=== PATIENT | female | born 1990 | race Caucasian/White ===

== ENCOUNTER 2019-01-03 20:15 | Emergency (ER) | payer OTHER ==
[2019-01-03] MEDS ORDERED: Sodium Chloride 0.9% 1000 ML 1,000 ML IV STA (21:06)
--- NOTE | 2019-01-03 21:14 | ERPHSYRPT ---
- History of Present Illness Time Seen by Provider: 01/03/19 21:02 Source: patient Exam Limitations: no limitations Patient Subjective Stated Complaint: pt is alert and oriented. pt is ambulatory with a steady gait. pt comes in at 19 weeks and 4 days with pelvic pressure, stomach cramping and N/v. pt states that all of her symptoms started today at 1230. pt denies any change in discharge or bleeding, pt denies feeling of leaking. pt states that she had some red spotting yesterday abut that it was minimal. FHT 135 with the doppler. pt does not appear to be in any distress. Triage Nursing Assessment: see above Physician History: 26-year-old white female 4 para 2 with a history of 1 spontaneous in the past arrives with complaint of abdominal pain described as a pressure in her epigastric region radiating down to her pelvis symptoms since today patient with nausea and vomiting she states her pain feels like cramping as well. She states she had some spotting yesterday. No fevers. Past medical history includes seizures, Past surgical history includes D&C, 2 Social history includes tobacco use denies alcohol or illicit drug use Timing/Duration: today Severity: moderate Modifying Factors: Improves With: nothing Associated Symptoms: nausea, vomiting, abdominal pain, No shortness of breath, No heartburn, No diaphoresis, No cough, No chills, No chest pain, No fever, No headaches, No loss of appetite, No malaise, No rash, No syncope, No seizure, No weakness Allergies/Adverse Reactions: No Known Drug Allergies Allergy (Unverified 01/03/19 20:52) Home Medications: Vits W-Ca,Fe,FA(<1Mg) [] 1 tablet PO DAILY 01/03/19 [History] Venlafaxine HCl [Venlafaxine HCl ER] 75 mg PO DAILY 01/03/19 [History] Hx Tetanus, Diphtheria Vaccination/Date Given: Yes Hx Influenza Vaccination/Date Given: No Immunizations Up to Date: Yes - Review of Systems Constitutional: No Fever, No Chills Eyes: No Symptoms Ears, Nose, & Throat: No Symptoms Respiratory: No Cough, No Dyspnea Cardiac: No Chest Pain, No Edema, No Syncope Abdominal/Gastrointestinal: Abdominal Pain, Nausea, Vomiting Genitourinary Symptoms: (patient states she is 19 weeks 4 days ), Vaginal Bleeding (vaginal spotting yesterday), No Vaginal Discharge Musculoskeletal: No Back Pain, No Neck Pain Skin: No Rash Neurological: No Dizziness, No Focal Weakness, No Sensory Changes Psychological: No Symptoms Endocrine: No Symptoms All Other Systems: Reviewed and Negative - Past Medical History Pertinent Past Medical History: Yes Neurological History: Seizures ENT History: No Pertinent History Cardiac History: No Pertinent History Respiratory History: No Pertinent History Endocrine Medical History: No Pertinent History Musculoskeletal History: No Pertinent History GI Medical History: No Pertinent History History: No Pertinent History Psycho-Social History: No Pertinent History Female Reproductive Disorders: No Pertinent History - Past Surgical History Past Surgical History: Yes Neuro Surgical History: No Pertinent History Cardiac: No Pertinent History Respiratory: No Pertinent History Gastrointestinal: No Pertinent History Genitourinary: No Pertinent History Musculoskeletal: No Pertinent History Female Surgical History: Dilation & Curettage, Section - Social History Smoking Status: Current every day smoker How long have you smoked: 11 years Drug Use: none - Female History Hx Now: Yes Expected Date of Delivery: 05/25/19 - Nursing Vital Signs Nursing Vital Signs: Initial Vital Signs Temperature 98.5 F 01/03/19 20:46 Pulse Rate 112 H 01/03/19 20:46 Respiratory Rate 18 01/03/19 20:46 Blood Pressure 124/84 01/03/19 20:46 O2 Sat by Pulse Oximetry 98 01/03/19 20:46 Pain Scale Pain Intensity 5 - Physical Exam General Appearance: mild distress, alert Eye Exam: PERRL/EOMI, eyes nml inspection Ears, Nose, Throat Exam: normal ENT inspection, TMs normal, pharynx normal, moist mucous membranes Neck Exam: normal inspection, non-tender, supple, full range of motion Respiratory Exam: normal breath sounds, lungs clear, No respiratory distress Cardiovascular Exam: regular rate/rhythm, normal heart sounds, normal peripheral pulses Gastrointestinal/Abdomen Exam: soft, distention, No tenderness Back Exam: normal inspection, normal range of motion, No CVA tenderness, No vertebral tenderness Extremity Exam: normal inspection, normal range of motion, pelvis stable Neurologic Exam: alert, oriented x 3, cooperative, follow up clerk II-XII nml as tested, normal mood/affect, nml cerebellar function, nml station & gait, sensation nml, No motor deficits Skin Exam: normal color, warm, dry, No rash SpO2 Interpretation: normal (98%) SpO2: 98 - Course Nursing assessment & vital signs reviewed: Yes - Radiology Ultrasound Exam OB Ultrasound: Other (Pelvic ultrasound per microwave radio technician: Intrauterine 19 weeks 4 days, heart rate 163 bpm, placenta posterior, cervix 3 cm long) Ordered Tests: Active Orders 24 hr Category Date Time Status Heart Tones-ED STAT Care 01/03/19 21:06 Active IV Insertion STAT Care 01/03/19 21:06 Active OB >14 WKS 1st GESTATION [US] Stat Exams 01/03/19 21:06 Taken AMYLASE Stat Lab 01/03/19 22:12 Completed CBC W DIFF Stat Lab 01/03/19 22:12 Completed CMP Stat Lab 01/03/19 22:12 Completed HCG, Quantitative (Inhouse) Stat Lab 01/03/19 22:12 Completed LIPASE Stat Lab 01/03/19 22:12 Completed UA W/RFX UR CULTURE Stat Lab 01/03/19 21:51 Completed Medication Summary Discontinued Medications Generic Name Dose Route Start Last Admin Trade Name Esmer PRN Reason Stop Dose Admin Sodium Chloride 1,000 mls @ 999 mls/hr 01/03/19 21:06 01/03/19 22:07 Sodium Chloride 0.9% 1000 Ml IV 01/03/19 22:06 999 mls/hr .Q1H1M STA Administration Sodium Chloride Confirm 01/03/19 22:03 Sodium Chloride 0.9% 1000 Ml Administered 01/03/19 22:04 Dose 1,000 mls @ ud .ROUTE .STK-MED ONE Lab/Rad Data: Laboratory Result Diagrams 01/03/19 22:12 01/03/19 22:12 Laboratory Results 01/03/19 01/03/19 01/03/19 Range/Units 22:12 22:12 22:12 WBC (4.0-10.5) K/mm3 RBC (4.1-5.4) M/mm3 Hgb (12.0-16.0) gm/dl Hct (35-47) % MCV (78-100) fl MCH (26-32) pg MCHC (32-36) g/dl RDW (11.5-14.0) % Plt Count (150-450) K/mm3 MPV (6-9.5) fl Gran % (36.0-66.0) % Eos # (Auto) (0-0.5) Absolute Lymphs (auto) (1.0-4.6) Absolute Monos (auto) (0.0-1.3) Lymphocytes % (24.0-44.0) % Monocytes % (0.0-12.0) % Eosinophils % (0.00-5.0) % Basophils % (0.0-0.4) % Absolute Granulocytes (1.4-6.9) Basophils # (0-0.4) Sodium 137 (137-145) mmol/L Potassium 3.9 (3.5-5.1) mmol/L Chloride 107 (98-107) mmol/L Carbon Dioxide 25 (22-30) mmol/L Anion Gap 9.4 (5-15) MEQ/L BUN 6 L (7-17) mg/dL Creatinine 0.53 (0.52-1.04) mg/dL Estimated GFR > 60.0 ML/MIN Glucose 103 (74-106) mg/dL Calcium 8.9 (8.4-10.2) mg/dL Total Bilirubin 0.30 (0.2-1.3) mg/dL AST 9 L (14-36) U/L ALT 10 (0-35) U/L Alkaline Phosphatase 53 (38-126) U/L Serum Total Protein 6.4 (6.3-8.2) g/dL Albumin 3.4 L (3.5-5.0) g/dL Amylase < 30 L (30-110) U/L Lipase 21 L (23-300) U/L Beta HCG, Quant 33765 mIU/ml Urine Color (YELLOW) Urine Appearance (CLEAR) Urine pH (5-6) Ur Specific Minerva (1.005-1.025) Urine Protein (Negative) Urine Ketones (NEGATIVE) Urine Blood (0-5) Des/ul Urine Nitrite (NEGATIVE) Urine Bilirubin (NEGATIVE) Urine Urobilinogen (0-1) mg/dL Ur Leukocyte Esterase (NEGATIVE) Urine WBC (Auto) (0-5) /HPF Urine RBC (Auto) (0-2) /HPF U Epithel Cells (Auto) (FEW) /HPF Urine Bacteria (Auto) (NEGATIVE) /HPF Calcium Oxalate Crystal (NEGATIVE) /HPF Urine Mucus (Auto) (NEGATIVE) /HPF Urine Culture Reflexed (NO) Urine Glucose (NEGATIVE) mg/dL ABO Group A Rh Factor POSITIVE Antibody Screen NEGATIVE (NEGATIVE) 01/03/19 01/03/19 Range/Units 22:12 21:51 WBC 13.6 H (4.0-10.5) K/mm3 RBC 3.73 L (4.1-5.4) M/mm3 Hgb 11.7 L (12.0-16.0) gm/dl Hct 34.8 L (35-47) % MCV 93.3 (78-100) fl MCH 31.3 (26-32) pg MCHC 33.6 (32-36) g/dl RDW 14.2 H (11.5-14.0) % Plt Count 250 (150-450) K/mm3 MPV 11.0 H (6-9.5) fl Gran % 78.1 H (36.0-66.0) % Eos # (Auto) 0.11 (0-0.5) Absolute Lymphs (auto) 2.40 (1.0-4.6) Absolute Monos (auto) 0.45 (0.0-1.3) Lymphocytes % 17.7 L (24.0-44.0) % Monocytes % 3.3 (0.0-12.0) % Eosinophils % 0.8 (0.00-5.0) % Basophils % 0.1 (0.0-0.4) % Absolute Granulocytes 10.57 H (1.4-6.9) Basophils # 0.02 (0-0.4) Sodium (137-145) mmol/L Potassium (3.5-5.1) mmol/L Chloride (98-107) mmol/L Carbon Dioxide (22-30) mmol/L Anion Gap (5-15) MEQ/L BUN (7-17) mg/dL Creatinine (0.52-1.04) mg/dL Estimated GFR ML/MIN Glucose (74-106) mg/dL Calcium (8.4-10.2) mg/dL Total Bilirubin (0.2-1.3) mg/dL AST (14-36) U/L ALT (0-35) U/L Alkaline Phosphatase (38-126) U/L Serum Total Protein (6.3-8.2) g/dL Albumin (3.5-5.0) g/dL Amylase (30-110) U/L Lipase (23-300) U/L Beta HCG, Quant mIU/ml Urine Color YELLOW (YELLOW) Urine Appearance CLOUDY (CLEAR) Urine pH 6.0 (5-6) Ur Specific Minerva 1.020 (1.005-1.025) Urine Protein NEGATIVE (Negative) Urine Ketones NEGATIVE (NEGATIVE) Urine Blood NEGATIVE (0-5) Des/ul Urine Nitrite NEGATIVE (NEGATIVE) Urine Bilirubin NEGATIVE (NEGATIVE) Urine Urobilinogen 4 (0-1) mg/dL Ur Leukocyte Esterase NEGATIVE (NEGATIVE) Urine WBC (Auto) 6-10 (0-5) /HPF Urine RBC (Auto) 3-5 (0-2) /HPF U Epithel Cells (Auto) RARE (FEW) /HPF Urine Bacteria (Auto) RARE (NEGATIVE) /HPF Calcium Oxalate Crystal 6-10 (NEGATIVE) /HPF Urine Mucus (Auto) SLIGHT (NEGATIVE) /HPF Urine Culture Reflexed NO (NO) Urine Glucose NEGATIVE (NEGATIVE) mg/dL ABO Group Rh Factor Antibody Screen (NEGATIVE) - Progress Progress: improved Progress Note: 01/03/19 23:18 Patient with pelvic ultrasound which shows intrauterine 19 weeks 4 days heart rate 163, placenta posterior, cervix is 3 cm long. Patient is actually feeling much better after IV fluids and states she is no longer having abdominal pain. Patient with a white count of 13.6 which is essentially normal for , patient states she does run high on her white count normally, hemoglobin 11.7 hematocrit 34.8 platelets are 250. Urinalysis 6-10 white cells negative nitrites chemistry essentially normal amylase less than 30 lipase 21 quantitative hCG 13,[phone]. I have offered to obtain a pelvic examination on this patient she does not want one she is declining that she states she will follow-up with her family doctor patient appears to be stable she is recommended to contact her STUDENT WORK[employer] physician her family doctor tomorrow. She is to return for acute distress severe symptoms or for any other problems. - Departure Time of Disposition: 23:21 Departure Disposition: Home Clinical Impression: Epigastric abdominal pain Qualifiers: Weeks of gestation: 19 weeks Qualified Code(s): Z3A.19 - 19 weeks gestation of Condition: Fair Critical Care Time: No Referrals: DOCTOR,NO FAMILY [Primary Care Provider] - Additional Instructions: Return home. Plenty of fluids clear fluids only 24-48 hours if abdominal pain. Follow-up with your family doctor or [employer]UD[employer] physician call tomorrow to arrange follow-up appointment. Return for acute distress, severe symptoms, or for any problems.
[2019-01-03] MEDS ORDERED: Sodium Chloride 0.9% 1000 ML 1,000 ML ONE (22:03)
[2019-01-03 22:09] VITALS: BP 136/84
[2019-01-03 22:11] LABS: Appearance CLOUDY (CLEAR); Bacteria RARE /HPF (NEGATIVE); Bilirubin NEGATIVE (NEGATIVE); Blood NEGATIVE Ery/ul (0-5); Epithelial Cells RARE /HPF (FEW); Glucose NEGATIVE (NEGATIVE); Ketones NEGATIVE (NEGATIVE); Leukocyte Esterase NEGATIVE (NEGATIVE); Mucus SLIGHT /HPF (NEGATIVE); Nitrite NEGATIVE (NEGATIVE); Protein,Urine Dip NEGATIVE (Negative); Urobilinogen 4 mg/dL (0-1)
[2019-01-03 22:16] LABS: BASOPHIL % 0.1 % (0.0-0.4); Basophil (Absolute #) 0.02 (0-0.4); Eosinophil % 0.8 % (0.00-5.0); Eosinophil (Absolute #) 0.11 (0-0.5); Granulocyte Absolute (ANC) 10.57 (1.4-6.9); Granulocytes % 78.1 % (36.0-66.0); Hematocrit 34.8 % (35-47); Hemoglobin 11.7 gm/dl (12.0-16.0); Lymphocytes % 17.7 % (24.0-44.0); Mean Cell Volume 93.3 fl (78-100); Mean Corpuscular Hgb Concent. 33.6 g/dl (32-36); Monocyte (Absolute #) 0.45 (0.0-1.3); Monocytes % 3.3 % (0.0-12.0); Platelet Count 250 K/mm3 (150-450); Red Blood Count 3.73 M/mm3 (4.1-5.4); Red Cell Distribution Width 14.2 % (11.5-14.0); White Blood Count 13.6 K/mm3 (4.0-10.5)
[2019-01-03 22:21] LABS: Mean Corpuscular Hemoglobin 31.3 pg (26-32)
[2019-01-03 22:35] LABS: AMYLASE < 30 U/L (30-110); LIPASE 21 U/L (23-300)
[2019-01-03 22:47] LABS: ALBUMIN 3.4 g/dL (3.5-5.0); ALKALINE PHOSPHATASE 53 U/L (38-126); ANION GAP 9.4 MEQ/L (5-15); BLOOD UREA NITROGEN 6 mg/dL (7-17); CHLORIDE 107 mmol/L (98-107); Calcium 8.9 mg/dL (8.4-10.2); Carbon Dioxide 25 mmol/L (22-30); Creatinine 1 0.53 mg/dL (0.52-1.04); Glucose 103 mg/dL (74-106); HCG, Quantitative (Inhouse) 13877 mIU/ml; Potassium 3.9 mmol/L (3.5-5.1); SGOT/AST 9 U/L (14-36); SGPT/ALT 10 U/L (0-35); SODIUM 137 mmol/L (137-145); Total Protein 6.4 g/dL (6.3-8.2)
[2019-01-03 22:59] LABS: ABO TYPING A; Antibody Screen NEGATIVE (NEGATIVE); RH TYPING POSITIVE
[2019-01-03 23:52] LABS: CHLAMYDIA URINE NEGATIVE; GC URINE NEGATIVE
[2019-01-04 00:11] VITALS: PULSE 98; O2SAT 100
--- NOTE | 2019-01-04 08:36 | XRAY ---
Indication: Cramping. Two-dimensional OB ultrasound performed. Comparison: None Analysis Analyst notes technically difficult exam due to patient body habitus. There is a single viable intrauterine uterine with composite gestational age 19 weeks 4 days. heart rate 163 bpm. Normal three-vessel cord and cord insertion. Visualized spine, stomach, kidneys, and bladder appear unremarkable. Posterior placenta without abruption/previa. Cervix is closed and measures 3 cm in length. Impression: Single viable intrauterine measuring 19 weeks 4 days. Expected date confinement is May 26, 2019. Recommend dedicated anatomy sonogram later in the . Comment: Preliminary report was given.
== END 2019-01-03 23:40 | disposition home or self-care (01) ==
LOC: ED 20:15
DX: O26.852 Spotting complicating pregnancy, second trimester (principal); R10.13 Epigastric pain; Z3A.19 19 weeks gestation of pregnancy; G40.909 Epilepsy, unspecified, not intractable, without status epilepticus
CPT/HCPCS: 36000; 36415; 76805; 80053; 81001; 82150; 83690; 84702; 85025; 86850; 86900; 86901; 87491; 87591; 96360; 99284